=== PATIENT | female | born 1965 | race Caucasian/White ===

== ENCOUNTER 2016-11-01 12:42 | Emergency (ER) | payer SELFPAY ==
[~2016-11-01] VITALS: Ht 165.1 cm; Wt 63.5 kg
[2016-11-01 13:56] LABS: Basophils # (auto) 0.2 uL; Basophils % (auto) 1.6 % (0.0-2.0); DEFINITIVE VIEW TRANSMISSION; Eosinophils # (auto) 0 uL; Eosinophils % (auto) 0.2 % (0.0-7.0); Hematocrit 29.3 % (36.0-46.0); Hemoglobin 9.4 g/dL (12.2-16.2); Lymphocytes # (auto) 1.1 uL; Mean Corpuscular Hemoglobin 19.9 pg (28.0-32.0); Mean Corpuscular Volume 62.1 fL (80.0-100.0); Mean Platelet Volume 9.3 fL (7.4-10.4); Monocytes # (auto) 0.7 uL; Monocytes % (auto) 5.6 % (0.0-12.0); Neutrophils # (auto) 10.1 uL; Neutrophils % (auto) 83.6 % (37.0-80.0); Platelet Count (auto) 455 10^3/uL (140-450); Red Cell Distribution Width 18.1 % (11.6-16.0); White Blood Cell 12.1 10^3/uL (4.4-10.8)
[2016-11-01 14:11] LABS: Albumin 4.1 g/dL (3.4-5.0); BUN/Creatinine Ratio 16.7; Bilirubin, Total 0.2 mg/dL (0.2-1.0); Calcium 9.1 mg/dL (8.5-10.1); Potassium 3.8 mmol/L (3.5-5.1); Total Protein 8.1 g/dL (6.4-8.2)
[2016-11-01 14:27] LABS: Microcytosis Marked; Platelet Estimate Increased
[2016-11-01 14:28] LABS: Hypochromia Marked
[2016-11-01 14:29] LABS: Giant Platelets Few
[2016-11-01 16:32] VITALS: BP 150/84
== END 2016-11-01 17:01 | disposition home or self-care (01) ==
LOC: ER 12:52
DX: S00.83XA Contusion of other part of head, initial encounter (principal); I10 Essential (primary) hypertension; Y08.89XA Assault by other specified means, initial encounter; Y93.89 Activity, other specified; Y99.8 Other external cause status; Y92.89 Other specified places as the place of occurrence of the external cause
CPT/HCPCS: 36415; 70450; 80053; 85025